=== PATIENT | male | born 1985 ===

== ENCOUNTER 2020-05-01 13:46 | Outpatient (CLI) | payer MEDICAID ==
[~2020-05-01] VITALS: Ht 180.3 cm; Wt 89.8 kg
[2020-05-01 14:06] VITALS: BP 124/81
[2020-05-01] MEDS ORDERED: LIALDA1.2 GM ORAL (14:06)
--- NOTE | 2020-05-01 16:45 | Consultation ---
DATE OF CONSULTATION: 05/01/2020 CONSULTING PHYSICIAN: Darian Newton MD. CHIEF COMPLAINT: Rectal bleeding, history of ulcerative colitis. HISTORY OF PRESENT ILLNESS: This is a pleasant 35-year-old male diagnosed with ulcerative colitis 14 years ago, currently on Lialda four tablets a day. Last colonoscopy more than four years ago presented to us with signs and symptoms of possible flare-up. PAST MEDICAL HISTORY: Ulcerative colitis. PAST SURGICAL HISTORY: None. MEDICATION: Lialda. FAMILY HISTORY: Noncontributory. SOCIAL HISTORY: The patient denies any tobacco, alcohol, or drug abuse. ALLERGIES: To codeine. REVIEW OF SYSTEMS: Positive for rectal bleeding. PHYSICAL EXAMINATION: VITAL SIGNS: Temperature 98.1, blood pressure 124/81, pulse 92, respirations . HEENT: Normocephalic and atraumatic. Sclerae are anicteric. NECK: Supple. No evidence of obvious lymphadenopathy. CARDIOVASCULAR: Regular rate and rhythm. Plus S1-S2. LUNGS: Clear to auscultation bilaterally. ABDOMEN: Positive bowel sounds. Soft and nontender. No rebound. No guarding. No peritoneal sign. EXTREMITIES: No cyanosis. No clubbing. No edema. ASSESSMENT AND PLAN: This is a 35-year-old male with ulcerative colitis, possible signs and symptoms of flare-up. Plan to Lialda four tablets a day and add Canasa suppository 1 g nightly. We will try to schedule the patient for colonoscopy when authorization is obtained. Darian Newton M.D. DR: NYASIA JOB#: [id number] CC:
== END 2020-05-01 15:46 | disposition home or self-care (01) ==
LOC: PAN 13:46
DX: K62.5 Hemorrhage of anus and rectum (principal); K51.90 Ulcerative colitis, unspecified, without complications; Z79.899 Other long term (current) drug therapy; Z88.6 Allergy status to analgesic agent
CPT/HCPCS: G0463